=== PATIENT | female | born 1985 | race Caucasian/White ===

== ENCOUNTER 2024-11-24 18:17 | Outpatient (CLI) | payer BC, SELFPAY ==
[2024-11-27 05:20] LABS: HPV Source Cervix
[2024-11-30 20:40] LABS: Pap Test Digital Imaging Done
== END 2024-11-24 18:18 | disposition home or self-care (01) ==
PROVIDERS: Visit Provider Registered Nurse
DX: Z12.4 Encounter for screening for malignant neoplasm of cervix (principal); Z13.9 Encounter for screening, unspecified
CPT/HCPCS: 80061; 87624; 87625; 88141; 88142; 88175